=== PATIENT | female | born 1970 | race Caucasian/White ===

== ENCOUNTER → 2016-12-17 | Outpatient (CLI) | payer OTHER | LOC: MC.RAD 16:19 | DX: Z12.31 Encounter for screening mammogram for malignant neoplasm of breast (principal); N63 Unspecified lump in breast ==

== ENCOUNTER → 2016-12-20 | Outpatient (CLI) | payer OTHER | LOC: MC.RAD 10:17 | DX: R59.0 Localized enlarged lymph nodes (principal); N63 Unspecified lump in breast ==

== ENCOUNTER → 2017-06-30 | Outpatient (CLI) | payer BC | LOC: MC.RAD 08:21 | DX: N63.10 Unspecified lump in the right breast, unspecified quadrant (principal) ==

== ENCOUNTER → 2019-12-08 | Outpatient (CLI) | payer BC | LOC: MC.RAD 08:37 | DX: Z12.31 Encounter for screening mammogram for malignant neoplasm of breast (principal); Z90.13 Acquired absence of bilateral breasts and nipples ==

== ENCOUNTER → 2020-11-15 | Outpatient (CLI) | payer BC | LOC: MC.RAD 11-13 11:00 | DX: N63.10 Unspecified lump in the right breast, unspecified quadrant (principal) ==

== ENCOUNTER → 2022-10-01 | Outpatient (CLI) | payer BC | LOC: MC.RAD 09:18 | DX: Z12.31 Encounter for screening mammogram for malignant neoplasm of breast (principal) ==

== ENCOUNTER 2024-03-03 13:47 | Outpatient (RCR) | payer BC ==
[~2024-03-03] VITALS: Ht 162.6 cm; Wt 89.8 kg
[~2024-03-03 13:47] MED LIST: PAXLOVID CO-PA1 EACH PO
[2024-03-03] MEDS ORDERED: Iron Sucrose 200 MG in NS 100 ML Over 15 minutes (5 doses/14 Days) IV SCH (14:00)
[2024-03-03 14:20] VITALS: BP 121/69; PULSE 86; TEMP 98.5
[2024-03-03] MEDS ORDERED: NEXIUM 40MG40 MG PO (14:43)
[2024-03-03] MEDS ORDERED: TOPROL XL 25MG25 MG PO (14:43)
[2024-03-03] MEDS ORDERED: CELEXA40 MG PO (14:44)
[2024-03-03] MEDS ORDERED: SINEQUAN 1010 MG/CAP PO (14:44)
[2024-03-03] MEDS ORDERED: LIPITOR 10MG10 MG PO (14:44)
[2024-03-03] MEDS ORDERED: GLUCOPHAGE XR750 MG PO (14:45)
[2024-03-03] MEDS ORDERED: MAG-G500 MG PO (14:45)
[2024-03-03] MEDS ORDERED: NEURONTIN600 MG/TAB PO (14:45)
[2024-03-03] MEDS ORDERED: OZEMPIC2 MG/0.75 SQ (14:46)
[2024-03-03] MEDS ORDERED: ATARAX 25MG25 MG/TAB PO (14:46)
[2024-03-03] MEDS ORDERED: ATIVAN 0.50.5 MG/TAB PO (14:47)
== END 2024-03-03 14:48 | disposition home or self-care (01) ==
LOC: EUO 13:47
DX: D50.9 Iron deficiency anemia, unspecified (principal)
CPT/HCPCS: J1756